=== PATIENT | male | born 1960 | race Caucasian/White ===

== ENCOUNTER → 2019-02-07 | Outpatient (CLI) | payer SELFPAY ==
--- NOTE | 2019-02-07 13:05 | XR ---
EXAMINATION TYPE: XR shoulder complete LT DATE OF EXAM: 02/07/2019 CLINICAL HISTORY: Left shoulder pain TECHNIQUE: Three views of the left shoulder are obtained. COMPARISON: None. FINDINGS: There is no acute fracture/dislocation evident in the left shoulder. The acromioclavicula r and glenohumeral joint spaces appear aligned. There are protuberant osteophytes of the left glenoh umeral joint with one projecting into the axillary recess. There is anyz-yu-sgog articulation of the glenohumeral joint with subchondral cyst formation and opposing surface sclerosis. Mild degenerative changes are seen of the acromioclavicular joint. The visualized ribs are intact and unremarkable. IMPRESSION: 1. No acute fracture or dislocation in the left shoulder. 2. Advanced left shoulder arthropathy with dxmj-zc-ptlv articulation of the glenohumeral joint and pr otuberant osteophyte extending into the axillary recess, which can create axillary nerve impingement. 3. Mild acromioclavicular arthropathy.
--- NOTE | 2019-02-07 13:07 | XR ---
EXAMINATION TYPE: XR Hip Complete LT DATE OF EXAM: 02/07/2019 CLINICAL HISTORY: Left hip pain with no stated injury. TECHNIQUE: AP and frogleg views of the left hip are obtained. COMPARISON: None. FINDINGS: There is no acute fracture/dislocation evident in the left hip. The joint space in the le ft hip appears aligned. There is severe cephalad joint space narrowing with cocs-sn-imdj articulatio n of the femoral acetabular joint, subchondral cystic formation and opposing surface sclerosis. There is a cam deformity of the lateral femoral head neck junction. Femoral head overall maintains a round ed morphology. The overlying soft tissue appears unremarkable. IMPRESSION: 1. No acute fracture or dislocation in the left hip. 2. Severe left femoral acetabular arthropathy with wjji-ap-iwud articulation of the cephalad femoral head with the acetabulum. 3. Cam deformity that can predispose this patient to femoral acetabular impingement syndrome.
== END | disposition home or self-care (01) ==
LOC: RADXRMAIN 11:52
PROVIDERS: ATTEND Internal Medicine
DX: M12.812 Other specific arthropathies, not elsewhere classified, left shoulder (principal); M21.952 Unspecified acquired deformity of left thigh
CPT/HCPCS: 73502

== ENCOUNTER → 2020-02-27 | Outpatient (CLI) | payer OTHER ==
[2020-02-27 11:52] LABS: HCT 48.9 % (39.0-53.0); HGB 15.8 gm/dL (13.0-17.5); MCH 30.6 pg (25.0-35.0); MCHC 32.2 g/dL (31.0-37.0); Platelet Count 299 k/uL (150-450); RBC 5.15 m/uL (4.30-5.90); WBC 7.8 k/uL (3.8-10.6)
[2020-02-27 11:54] LABS: Appearance,Urine Clear (Clear); Bilirubin,Urine Negative (Negative); Blood,Urine Negative (Negative); Color,Urine Yellow; Glucose,Urine (UA) Negative (Negative); Ketones,Urine Negative (Negative); Leukocyte Esterase,Urine Negative (Negative); Nitrite,Urine Negative (Negative); Protein,Urine Negative (Negative); Specific Gravity,Urine 1.022 (1.001-1.035); Urobilinogen,Urine <2.0 mg/dL (<2.0)
[2020-02-27 12:05] LABS: ALT 16 U/L (4-49); AST 25 U/L (17-59); African American GFR (CKD) >90 (>60 ml/min/1.73 sqM); Albumin 4.1 g/dL (3.5-5.0); Alkaline Phosphatase 74 U/L (38-126); Anion Gap 4 mmol/L; Blood Urea Nitrogen 20 mg/dL (9-20); Calcium 9.5 mg/dL (8.4-10.2); Carbon Dioxide 32 mmol/L (22-30); Chloride 103 mmol/L (98-107); Glucose 96 mg/dL (74-99); Non-African American GFR(CKD) >90 (>60 ml/min/1.73 sqM); Partial Thromboplastin Time 24.5 sec (22.0-30.0); Potassium 4.8 mmol/L (3.5-5.1); Prothrombin Time 10.6 sec (9.0-12.0); Sodium 139 mmol/L (137-145); Total Bilirubin 0.6 mg/dL (0.2-1.3); Total Protein 7.1 g/dL (6.3-8.2)
== END | disposition home or self-care (01) ==
LOC: LABPAT 11:04
PROVIDERS: ATTEND Orthopaedic Surgery
DX: Z01.812 Encounter for preprocedural laboratory examination (principal); Z01.818 Encounter for other preprocedural examination
CPT/HCPCS: 36415; 80053; 81003; 85027; 85610; 85730; 86850; 86900; 86901; 87070; 93005

== ENCOUNTER 2020-03-09 11:29 | Day surgery (SDC) | payer OTHER ==
[2020-02-28 14:22] VITALS: BMI 25.8
[~2020-03-09 11:29] MED LIST: ACETAMINOPHEN TAB 500 MG TAB PO PRN; GABAPENTIN 300 MG CAP PO PRN; HYDROmorphone 0.5 MG/0.5 ML SYRINGE IVP PRN; LIDOCAINE 1% (10MG/ML) FOR IV START INTRADERMA PRN; MELOXICAM 7.5 MG TAB PO PRN; ONDANSETRON 4 MG/2 ML VIAL IVP ONE; ROPIVACAINE/EPI/CLONIDINE/KET 50 ML SYRINGE MISCELLANE PRN; TRANEXAMIC ACID 1,000 MG in SODIUM CHLORIDE 0.9% 100 ML IVPB PRN
[2020-03-09] MEDS ORDERED: HYDROmorphone 0.5 MG/0.5 ML SYRINGE IVP PRN (11:59)
[2020-03-09] MEDS ORDERED: diazePAM 5 MG TAB PO PRN (11:59)
[2020-03-09] MEDS ORDERED: ONDANSETRON 4 MG/2 ML VIAL IVP PRN (11:59)
[2020-03-09] MEDS ORDERED: HYDROmorphone 1 MG/ML 1 ML SYRINGE IVP PRN (11:59)
[2020-03-09] MEDS ORDERED: HYDROcodone/APAP 5-325MG 1 EACH TAB PO PRN ×2 (11:59)
[2020-03-09] MEDS ORDERED: NALOXONE 0.4 MG/ML 1 ML VIAL IV PRN (11:59)
[2020-03-09] MEDS ORDERED: MAGNESIUM HYDROXIDE 2,400 MG/10 ML CUP PO PRN (11:59)
[2020-03-09] MEDS ORDERED: hydrOXYzine pamoate 25 MG CAP PO PRN (11:59)
[2020-03-09] MEDS ORDERED: HYDROmorphone 0.2 MG/1 ML SYRINGE IVP PRN (11:59)
[2020-03-09] MEDS ORDERED: fentaNYL (PF) 50 MCG/ML 2 ML AMP ONE (12:18)
[2020-03-09] MEDS ORDERED: HEPARIN SODIUM,PORCINE 10,000 UNIT/ML 1 ML VIAL ONE (12:18)
[2020-03-09] MEDS ORDERED: SODIUM CHLORIDE 0.9% IRRIG 1,000 ML BTL IRRIGATION ONE (12:18)
[2020-03-09] MEDS ORDERED: PHENYLEPHRINE 10 MG/ML VIAL ONE (12:18)
[2020-03-09] MEDS ORDERED: SODIUM CHLORIDE 0.9% 100 ML BAG ONE (12:18)
[2020-03-09] MEDS ORDERED: MIDAZOLAM 2 MG/2 ML VIAL ONE (12:18)
[2020-03-09] MEDS ORDERED: PROPOFOL 10 MG/ML 20 ML VIAL IV ONE (12:18)
[2020-03-09] MEDS ORDERED: TRANEXAMIC ACID 1,000 MG/10 ML VIAL ONE (12:18)
[2020-03-09] MEDS ORDERED: DEXAMETHASONE SOD PHOSPHATE 4 MG/ML 1 ML VIAL IV ONE (12:20)
[2020-03-09] MEDS: LACTATED RINGERS 1,000 ML IV SCH (12:22)
[2020-03-09] MEDS ORDERED: ceFAZolin 3,000 MG in SODIUM CHLORIDE 0.9% IRRIGATIO 3,000 ML IRRIGATION ONE (12:23)
[2020-03-09] MEDS ORDERED: LACTATED RINGERS 1,000 ML IV ONE (13:35)
--- NOTE | 2020-03-09 13:57 | P.OP ---
Date of Procedure: 03/09/20 Preoperative Diagnosis: Severe osteoarthritis left hip Postoperative Diagnosis: Severe osteoarthritis left hip Procedure(s) Performed: Left total hip arthroplasty with a direct anterior approach Implants: [employer] Polarstem standard size 5 [employer] R3, 3 hole hemispherical acetabular shell, 54 mm [employer] Reflection 6.5 mm cancellus screw, 20 mm, 25 mm [employer] R3, XLPE 20 acetabular liner [employer] Oxinium femoral head 36 m, +4 All components were press-fit. The articulation is Oxinium on polyethylene. Anesthesia: spinal Surgeon: Jonathon Ortiz Dolly Driver #1: Valarie Deleon Estimated Blood Loss (ml): 200 (120 mL returned with Cell Saver) Pathology: other (Femoral head) Condition: stable Disposition: PACU Indications for Procedure: After failure of conservative treatment we discussed the surgical and nonsurgical treatment options at length. Patient wishes to proceed with a total hip arthroplasty with a direct anterior approach. Complications specific to this procedure were discussed at length, including but not limited to infection, leg length discrepancy, dislocation, nerve injury, and fracture. Covid-19 was also discussed at length with the patient, and they are aware of the current policies and procedures. The patient was given the option of delaying surgery, but they elect to proceed knowing these risks. Patient is aware of all these complications and informed consent was obtained Operative Findings: The operative findings are consistent with severe osteoarthritis of the left hip Description of Procedure: Patient was seen and evaluated in the preoperative area and the consent was reviewed. The operative site was marked with a skin marker. The patient was then brought to the operating room and given preoperative antibiotics intravenously. 1 g of Tranexamic acid was also given intravenously. A spinal anesthetic was administered by the anesthesia department. The patient was then placed on the [place] table with the bony prominences well-padded. The hip area was then prepped with a ChloraPrep solution and draped in the usual sterile fashion. A universal timeout was then performed, which confirmed the patient's name, surgical site, ALLERGIES, and procedure being performed on the consent. Next the incision site was located at 1 cm distal and 1 cm lateral to the anterior superior iliac spine. The skin and subcutaneous tissues were sharply incised. Incision was carefully dissected down to the fascia overlying the tensor fascia meg muscle. This fascia was then incised in line with the incision. Care was taken to stay laterally in order to avoid injuring the lateral femoral cutaneous nerve. Next, using blunt finger dissection, the tensor fascia meg muscle was dissected off its investing fascia. The muscle was then carefully retracted laterally with a cobra retractor over the lateral neck of the femur. Next, the circumflex vessels were identified and cauterized using the AquaMantis device. The anterior hip capsule was then exposed. The capsule was then opened and an inverted T fashion. Cobra retractors were then placed intracapsularly. The retractors were maintained intracapsular throughout the procedure. The proximal femur was then visualized. A small amount of traction was placed on the leg. The femoral neck was then osteotomized appropriate level above the lesser trochanter. A small wedge of bone was then removed from the remaining femoral head. Next, using a corkscrew the femoral head was removed from the acetabulum. On gross visual inspection, the femoral head had complete loss of articular cartilage and multiple periarticular osteophytes. The femoral head was then measured. Attention was then turned to the acetabulum. The acetabulum was exposed and any remaining labrum was excised. Sequential reaming of the acetabulum was performed using fluoroscopic guidance until there was a good bed of bleeding cancellus bone. When the appropriate size was reached, a trial was then placed. The position and fit of the trial was checked with fluoroscopy. The trial was then removed. Then, using fluoroscopic guidance, the final implant was impacted at 20 of anteversion and 40 of abduction, and fully seated in the acetabulum. 2 screws were then placed in the acetabulum. Again fluoroscopy was used to check position of the screws. Next, the liner was then impacted, with a 20 elevated liner located in the anterior superior quadrant. Component locking was confirmed. Attention was then directed to the femur. With the aid of the [place] table, the femur was externally rotated to approximately 130, extended, and adducted under the opposite leg. A side hook was then placed under the proximal femur, and the side hook elevator was used to elevate the proximal femur while releasing the capsule. Retractors were then placed. A capsular release was performed, as well as a release of the conjoined tendon, which afforded excellent visualization of the proximal femur. Next, a box osteotome was used to lateralize the proximal femur. A handkerchief presser was then used to locate the femoral canal. Sequential broaching was then performed with appropriate size which afforded excellent fixation in the proximal femur. A trial was then placed with appropriate head and neck, and the hip was gently reduced with the aid of the [place] table. Fluoroscopy was then used to check position of the components, as well as to ensure equal leg lengths. The hip was then gently dislocated and the trials were then removed. Final implants were then impacted and the hip was again reduced. Final fluoroscopic x-rays confirmed that the components were in anatomic position, as well as equal leg lengths. The hip was also taken through range of motion, and found to be stable. The hip was then copiously irrigated with antibiotic solution with pulsatile lavage. The hip was then irrigated with Irrisept solution. The soft tissues were then injected with a ropivacaine solution, which consisted of 246.25 mg of ropivacaine, 0.5 mg of epinephrine, 30 mg of Toradol, 80 g of clonidine, and 48.45 mL of sterile water, for a total of 100 mL of fluid injected. A second dose of 1 g of Tranexamic acid was also given intravenously. Any blood collected by Cell Saver was then returned to the patient at this time. The fascia was then closed with 2-0 strata fix suture. The subcutaneous tissue was closed with 3-0 Vicryl. The subcuticular tissue was closed with 3-0 strata fix suture. The skin was then closed with Exofin skin glue. After the glue and dried, and Optifoam silver impregnated dressing was applied. The patient was then transferred to the recovery room in stable condition. The accounts receivable assistant HINA Ramos was required due to the complexity of surgery, and the need for skilled medical assistant supervisor for positioning, draping, exposure, retraction, and closure of the wound.
--- NOTE | 2020-03-09 14:30 | XR ---
EXAMINATION TYPE: XR Hip Limited LT DATE OF EXAM: 03/09/2020 COMPARISON: NONE HISTORY: 59-year-old male status post hip surgery, assess surgical alignment TECHNIQUE: AP view FINDINGS: Image shows placement of left hip total arthroplasty. Both acetabular cup and femoral stem components of the prosthesis are well seated without periprosthetic fracture. Soft tissue air related to recent operation. Alignment grossly anatomic. IMPRESSION: Uncomplicated postoperative appearance left total hip arthroplasty.
[2020-03-09] MEDS: SODIUM CHLORIDE 0.9% 1,000 ML IV SCH ×2 (15:31→19:29)
--- NOTE | 2020-03-09 15:33 | XR ---
EXAMINATION TYPE: XR Hip Limited LT, FL guidance operating room DATE OF EXAM: 03/09/2020 COMPARISON: NONE HISTORY: 59-year-old male total left hip replacement FINDINGS: Intraoperative fluoroscopy during left hip total arthroplasty. FLUOROSCOPY Fluoroscopy time of 42 seconds was used during left hip total arthroplasty. 2 image/s document/s the procedure. IMPRESSION: Intraoperative fluoroscopy as above.
[2020-03-09] MEDS ORDERED: SENNOSIDES-DOCUSATE SODIUM 1 EACH TAB PO SCH (21:00)
[2020-03-09] MEDS: ASPIRIN 325 MG TAB PO SCH (22:23)
[2020-03-10] MEDS: LACTATED RINGERS 1,000 ML IV SCH (05:34)
[2020-03-10 06:53] LABS: Basophils % (A) 0 %; Eosinophils % (A) 0 %; HCT 38.9 % (39.0-53.0); Lymphocytes # (A) 1.1 k/uL (1.0-4.8); Lymphocytes % (A) 7 %; MCH 31.3 pg (25.0-35.0); MCHC 33.4 g/dL (31.0-37.0); MCV 93.5 fL (80.0-100.0); Mean Platelet Volume 7.2; Monocytes # (A) 1.1 k/uL (0-1.0); Monocytes % (A) 7 %; Neutrophils # (A) 13.5 k/uL (1.3-7.7); Neutrophils % (A) 85 %; Platelet Count 265 k/uL (150-450); RBC 4.16 m/uL (4.30-5.90); RDW 12.9 % (11.5-15.5)
[2020-03-10 07:25] VITALS: BP 143/96; PULSE 82; RESP 17; TEMP 97.8
[2020-03-10] MEDS: ASPIRIN 325 MG TAB PO SCH (08:08)
[2020-03-10] MEDS ORDERED: MELOXICAM 7.5 MG TAB PO SCH (09:00)
--- NOTE | 2020-03-10 09:06 | P.DS ---
Providers Expected date of discharge: 03/10/20 Attending physician: Jonathon Ortiz Consults: 03/09/20 11:59 Consult Physician Routine Consulting Provider: Uma Jara Consult Reason/Comments: medical management Do you want consulting provider notified?: Yes Primary care physician: Alverto Holm - Discharge Diagnosis(es) (1) Osteoarthritis of left hip Current Visit: Yes Status: Acute (2) Status post total hip replacement, left Current Visit: Yes Status: Acute Hospital Course: This is a 59-year-old male with known history of degenerative arthritis of the left hip. The patient presented for evaluation as an outpatient. After discussion and consideration patient elects to proceed with total hip arthroplasty. The patient is seen preoperatively by Dr. Ortiz and medically cleared for surgery by their primary care physician. Patient is admitted to [facility] on 03/09/2020 for total hip arthroplasty. The procedure is performed without complication or sequelae. The patient is doing well postoperatively. Labs and vital signs are stable on day of discharge. On day of discharge patient's hip incision is healing well. There is minimal erythema. There is no drainage noted at this time. There is minimal soft tissue swelling to the hip and thigh. Patient has full foot and ankle motion without difficulty or pain. Calf is soft and nontender to palpation. Neurovascular status to the left lower extremity is intact. Patient is discharged home in good condition. Opioid start talking form is reviewed and signed. Please see med rec for accurate list of home medications. Plan - Discharge Summary Discharge Rx Participant: No New Discharge Prescriptions: New Aspirin 325 mg PO BID #60 tab HYDROcodone/APAP 5-325MG [[place] 5-325] 1 - 2 tab PO Q6HR PRN #48 tab PRN Reason: Pain Sennosides [Senokot] 2 tab PO DAILY PRN #60 tablet PRN Reason: Constipation Discharge Medication List Aspirin 325 mg PO BID #60 tab 03/10/20 [Rx] HYDROcodone/APAP 5-325MG [[place] 5-325] 1 - 2 tab PO Q6HR PRN #48 tab 03/10/20 [Rx] Sennosides [Senokot] 2 tab PO DAILY PRN #60 tablet 03/10/20 [Rx] Follow up Appointment(s)/Referral(s): Alta Del Toro MD [Primary Care Provider] - 1 Week Jonathon Ortiz DO [Doctor of Osteopathic Medicine] - 03/19/20 2:30 pm Activity/Diet/Wound Care/Special Instructions: Weightbearing as tolerated with walker. Leave dressing intact. Dressing may be removed by home care nurse or by patient in 10 days. May shower with dressing on. Please take aspirin 325mg twice daily for 30 days to prevent blood clots. Recommend use of compression stockings daily until follow up to help prevent swelling and blood clots. May remove at night before sleeping. Please follow-up with [facility] in 2 weeks and call with any questions or concerns, . Discharge Disposition: HOME WITH HOME HEALTH SERVICES
--- NOTE | 2020-03-10 12:03 | P.CONS ---
History of Present Illness - Reason for Consult Leukocytosis - History of Present Illness Patient is a pleasant 59-year-old male came in for elective left hip arthroplasty. Patient denied any pain post surgery. Patient did move his bowel. Is passing gas. Patient denied any fever chills dysuria patient does have leukocytosis. Review of Systems REVIEW OF SYSTEMS: CONSTITUTIONAL: No fever, no malaise, no fatigue. HEENT: No recent visual problems or hearing problems. Denied any sore throat. CARDIOVASCULAR: No chest pain, orthopnea, PND, no palpitations, no syncope. PULMONARY: No shortness of breath, no cough, no hemoptysis. GASTROINTESTINAL: No diarrhea, no nausea, no vomiting, no abdominal pain. NEUROLOGICAL: No headaches, no weakness, no numbness. HEMATOLOGICAL: Denies any bleeding or petechiae. GENITOURINARY: Denies any burning micturition, frequency, or urgency. MUSCULOSKELETAL/RHEUMATOLOGICAL: As mentioned in HPI ENDOCRINE: Denies any polyuria or polydipsia. The rest of the 14-point review of systems is negative. Past Medical History Past Medical History: Osteoarthritis (OA) History of Any Multi-Drug Resistant Organisms: None Reported Past Surgical History: No Surgical Hx Reported Past Anesthesia/Blood Transfusion Reactions: No Reported Reaction Additional Past Anesthesia/Blood Transfusion Reaction / Comm: has never had anesthesia Past Psychological History: No Psychological Hx Reported Smoking Status: Never smoker Past Alcohol Use History: None Reported Past Drug Use History: None Reported - Past Family History Mother Family Medical History: No Reported History Medications and Allergies Home Medications Medication Instructions Recorded Confirmed Type Aspirin 325 mg PO BID #60 tab 03/10/20 Rx HYDROcodone/APAP 5-325MG [[employer] 1 - 2 tab PO Q6HR PRN #48 tab 03/10/20 Rx 5-325] Sennosides [Senokot] 2 tab PO DAILY PRN #60 tablet 03/10/20 Rx Allergies Allergy/AdvReac Type Severity Reaction Status Date / Time No Known Allergies Allergy Verified 03/09/20 11:46 Physical Exam Vitals: Vital Signs Temp Pulse Pulse Resp BP BP Pulse Ox 03/10/20 07:25 97.8 F 82 17 143/96 96 03/10/20 02:56 98.1 F 95 129/85 96 03/09/20 20:00 106 H 16 03/09/20 18:47 98.2 F 106 H 131/94 95 03/09/20 15:20 96.0 F L 51 L 16 131/92 97 03/09/20 14:48 80 16 134/87 98 03/09/20 14:33 91 16 138/95 97 03/09/20 14:18 89 16 131/84 100 03/09/20 14:03 96.8 F L 94 12 137/88 98 03/09/20 12:20 97.1 F L 94 18 160/107 98 Intake and Output 03/09/20 03/10/20 03/10/20 22:59 06:59 14:59 Intake Total 395 Output Total 400 Balance 395 -400 Intake: Intake, IV Titration 195 Amount Sodium Chloride 0.9% 1, 195 000 ml @ 65 mls/hr IV . [id number] [facility] Rx#:[id number] Oral 200 Output: Urine 400 Other: Voiding Method Urinal PHYSICAL EXAMINATION: GENERAL: The patient is alert and oriented x3, not in any acute distress. Well developed, well nourished. HEENT: Pupils are round and equally reacting to light. EOMI. No scleral icterus. No conjunctival pallor. Normocephalic, atraumatic. No pharyngeal erythema. No thyromegaly. CARDIOVASCULAR: S1 and S2 present. No murmurs, rubs, or gallops. PULMONARY: Chest is clear to auscultation, no wheezing or crackles. ABDOMEN: Soft, nontender, nondistended, normoactive bowel sounds. No palpable organomegaly. MUSCULOSKELETAL: No joint swelling or deformity. EXTREMITIES: No cyanosis, clubbing, or pedal edema. NEUROLOGICAL: Gross neurological examination did not reveal any focal deficits. SKIN: No rashes. Results CBC & Chem 7: 03/10/20 06:29 Labs: Abnormal Lab Results - Last 24 Hours (Table) 03/10/20 Range/Units 06:29 WBC 16.0 H (3.8-10.6) k/uL RBC 4.16 L (4.30-5.90) m/uL Hct 38.9 L (39.0-53.0) % Neutrophils # 13.5 H (1.3-7.7) k/uL Monocytes # 1.1 H (0-1.0) k/uL Assessment and Plan Plan: -Left hip arthroplasty: Patient is medically doing well and can be discharged from medical perspective patient is being discharged on aspirin 325 twice daily for DVT prophylaxis. -Leukocytosis reactive without any evidence of infection no further intervention -Multi- joint primary osteoarthritis
== END 2020-03-10 13:13 | disposition home health service (06) ==
LOC: OR 11:29 → 4SSUR 14:22 → OR 03-10 13:13
PROVIDERS: ATTEND Orthopaedic Surgery
DX: M16.12 Unilateral primary osteoarthritis, left hip (principal); M25.752 Osteophyte, left hip; D72.829 Elevated white blood cell count, unspecified; I10 Essential (primary) hypertension
CPT/HCPCS: 97110; 97161; 97535; 97165; 86891; 85025; 88300; 73501; 27130; P9022; C1776; J2250; J1644; J1100; J2370; J0690 ×3; J2405; J3010; J2704; 86850; 86900; 86901

== ENCOUNTER → 2020-07-14 | Outpatient (CLI) | payer OTHER | END | disposition home or self-care (01) | LOC: LABWHC1 13:33 | PROVIDERS: ATTEND Student in an Organized Health Care Education/Training Program | DX: Z01.812 Encounter for preprocedural laboratory examination (principal); Z11.52 Encounter for screening for COVID-19 | CPT/HCPCS: U0003; C9803; U0005 ==

== ENCOUNTER 2020-07-21 13:32 | Day surgery (SDC) | payer OTHER ==
[2020-07-17 08:44] VITALS: BMI 25.4
[~2020-07-21 13:32] MED LIST changes: -ACETAMINOPHEN TAB 500 MG TAB PO PRN; -GABAPENTIN 300 MG CAP PO PRN; -HYDROmorphone 0.5 MG/0.5 ML SYRINGE IVP PRN; +LACTATED RINGERS 1,000 ML IV SCH; -MELOXICAM 7.5 MG TAB PO PRN; -ONDANSETRON 4 MG/2 ML VIAL IVP ONE; -ROPIVACAINE/EPI/CLONIDINE/KET 50 ML SYRINGE MISCELLANE PRN; -TRANEXAMIC ACID 1,000 MG in SODIUM CHLORIDE 0.9% 100 ML IVPB PRN
[2020-07-21 13:47] VITALS: RESP 16; TEMP 97.6
[2020-07-21] MEDS ORDERED: PROPOFOL 10 MG/ML 20 ML VIAL IV ONE (13:57)
[2020-07-21 15:09] VITALS: BP 158/94; PULSE 92
--- NOTE | 2020-07-21 16:26 | P.OP ---
Date of Procedure: 07/21/20 Preoperative Diagnosis: Screening Postoperative Diagnosis: Same Procedure(s) Performed: Colonoscopy Anesthesia: ANTONIO Surgeon: Yves Aldana Estimated Blood Loss (ml): 0 Condition: stable Disposition: PACU Description of Procedure: Patient is brought Endo suite placed in the left lateral decubitus position underwent sedation per department of anesthesia timeout performed correct patient correct procedure correct site was verified rectal exam performed no gross abnormalities noted scope was passed from the rectum and cecum with the slowly withdrawn being sure to visualize all mariano of the colon on the way out there is no gross abnormalities. Scope was retroflexed in the rectum no abnormalities were noted patient tolerated the procedure well no apparent complications he'll need a repeat colonoscopy for screening purposes in 10 years
== END 2020-07-21 15:40 | disposition home or self-care (01) ==
LOC: ORWHC2ENDO 13:32
PROVIDERS: ATTEND Student in an Organized Health Care Education/Training Program
DX: Z12.11 Encounter for screening for malignant neoplasm of colon (principal); K64.9 Unspecified hemorrhoids
CPT/HCPCS: J2704; G0121

== ENCOUNTER 2021-03-16 11:33 | Day surgery (SDC) | payer OTHER ==
[~2021-03-16 11:33] MED LIST changes: +DEXAMETHASONE SOD PHOSPHATE 4 MG/ML 1 ML VIAL IV ONE; +HYDROmorphone 0.5 MG/0.5 ML SYRINGE IVP PRN; -LIDOCAINE 1% (10MG/ML) FOR IV START INTRADERMA PRN; +ONDANSETRON 4 MG/2 ML VIAL IVP ONE; +Pre Op ABX Message 1 EACH MISC MISCELLANE ONE
[2021-03-16 12:05] VITALS: TEMP 96.9
[2021-03-16] MEDS ORDERED: MIDAZOLAM 2 MG/2 ML VIAL IVP ONE (12:30)
[2021-03-16] MEDS ORDERED: PROPOFOL 10 MG/ML 20 ML VIAL IV ONE (13:24)
[2021-03-16] MEDS ORDERED: fentaNYL (PF) 50 MCG/ML 2 ML AMP ONE (13:24)
[2021-03-16] MEDS ORDERED: HYDROmorphone (PF) 1 MG/ML ONE (13:24)
[2021-03-16] MEDS ORDERED: LIDOCAINE 1% INJ 10MG/ML (20 ML MDV) ONE (13:24)
[2021-03-16] MEDS ORDERED: LABETALOL 5 MG/ML VIAL MDV ONE (13:24)
[2021-03-16] MEDS ORDERED: BUPIVACAINE (PF) 0.25% 30 ML VIAL SQ ONE ×2 (13:45→14:00)
--- NOTE | 2021-03-16 14:07 | P.OP ---
Date of Procedure: 03/16/21 Preoperative Diagnosis: Torn lateral meniscus right knee Postoperative Diagnosis: 1. Torn lateral meniscus right knee 2. 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 Synovitis Procedure(s) Performed: 1. Arthroscopy of the right knee with partial lateral meniscectomy (40% of meniscus excised) 2. Chondroplasty of the medial femoral, lateral femoral, and patellofemoral compartments. 3. Partial synovectomy of the medial femoral, lateral femoral, patellofemoral compartments Anesthesia: MCKENZIEA Surgeon: Jonathon Ortiz Estimated Blood Loss (ml): 5 Pathology: none sent Condition: stable Disposition: PACU Indications for Procedure: This is a 60-year-old gentleman that presented to my office with pain in his right knee. MRI to proceed with torn lateral meniscus and after discussing the surgical nonsurgical treatment options length he was to proceed with arthroscopic debridement of his right knee and informed consent was obtained. Operative Findings: The operative findings are consistent with a tear of the lateral meniscus, grade 2-3 chondral malacia changes of the medial femoral, lateral femoral, patellofemoral compartments and synovitis. Description of Procedure: Patient was seen and evaluated in the preoperative area, the operative site was marked with a skin marker. The patient was then brought to the operating room and given 2 g of Ancef intravenously. A general anesthetic was administered by the anesthesia department. Tourniquet was placed on the right upper thigh and the left lower extremity was then prepped and draped in usual sterile fashion. A universal timeout was then performed confirming the patient's name, surgical site, ALLERGIES, and consent. The limb was then exsanguinated and tourniquet insufflated to 250 mmHg. Standard inferior medial and inferior lateral portals were established in the knee. The trochar was inserted in the inferolateral portal. Examination began at the patellofemoral joint. There is noted to be grade 2-3 chondral malacia the patellofemoral compartment and a moderate amount of synovitis. Next the medial compartment was visualized. The medial meniscus was intact. There was grade 2-3 chondral malacia the mediofemoral compartment and synovitis. The notch area was then visualized and the ACL was intact. The Lateral compartment was then visualized and there was a tear of the lateral horn of the lateral meniscus. There was grade 2-3 chondromalacia, and a mild amount of synovitis. Next, using an arthroscopic shaver and a biter, partial lateral meniscectomy was performed stable margins. Approximately 40% of the meniscus was excised. A partial synovectomy is performed the medial femoral, lateral femoral, patellofemoral compartments. Chondroplasty was also performed of the medial femoral, lateral femoral, and patellofemoral compartments of the knee. Knee was then copiously irrigated, instruments removed, incisions were closed with 4-0 nylon. 30 mL of quarter percent plain Marcaine was injected sterilely into the surgical area. A sterile dressing was then applied, and the tourniquet was released. Patient was then transferred to recovery room in stable condition.condition.
[2021-03-16 16:51] VITALS: BP 134/88; PULSE 64; RESP 16
== END 2021-03-16 17:04 | disposition home health service (06) ==
LOC: OR 11:33
PROVIDERS: ATTEND Orthopaedic Surgery
DX: M23.200 Derangement of unspecified lateral meniscus due to old tear or injury, right knee (principal); M22.41 Chondromalacia patellae, right knee; M19.90 Unspecified osteoarthritis, unspecified site; M65.9 Synovitis and tenosynovitis, unspecified; I10 Essential (primary) hypertension; Z96.642 Presence of left artificial hip joint; Z79.899 Other long term (current) drug therapy
CPT/HCPCS: 29881; J2250; J1100; J2405; J2001; J3010; J1170; J2704